=== PATIENT | male | born 1980 ===

== ENCOUNTER 2022-03-12 06:00 | Day surgery (SDC) | payer OTHER ==
[2022-03-12] MEDS ORDERED: PANTOPRAZOLE SO20 MG PO (09:49)
[2022-03-12] MEDS ORDERED: CARAFATE1 GM/10 ML PO (09:49)
== END 2022-03-12 11:05 | disposition home or self-care (01) ==
LOC: AMB-ENDOS 06:00
PROVIDERS: ATTEND Surgery
DX: K29.50 Unspecified chronic gastritis without bleeding (principal); K44.9 Diaphragmatic hernia without obstruction or gangrene; B96.81 Helicobacter pylori [H. pylori] as the cause of diseases classified elsewhere; Z20.822 Contact with and (suspected) exposure to COVID-19